=== PATIENT | male | born 1950 | race Asian ===

== ENCOUNTER → 2017-05-03 | Outpatient (CLI) | payer OTHER, MEDICARE | LOC: FIMAGING 07:43 | PROVIDERS: ATTEND Family Medicine | DX: K76.89 Other specified diseases of liver (principal) ==

== ENCOUNTER → 2018-06-20 | Outpatient (CLI) | payer OTHER, MEDICARE | LOC: FIMAGING 08:39 | PROVIDERS: ATTEND Physician Assistant Surgical | DX: M43.16 Spondylolisthesis, lumbar region (principal); M51.36 Other intervertebral disc degeneration, lumbar region ==